=== PATIENT | male | born 1975 | race Caucasian/White ===

== ENCOUNTER 2019-07-25 11:56 | Emergency (ER) | payer OTHER ==
[~2019-07-25] VITALS: Ht 180.3 cm; Wt 93.0 kg
[2019-07-25 11:59] VITALS: BP 140/86
--- NOTE | 2019-07-25 12:02 | NUR ---
PT PLACED IN W/C AND SENT TO ER LOBBY TO WAIT FOR AVAILABLE BED.
--- NOTE | 2019-07-25 16:13 | NUR ---
PATIENT LEFT WITHOUT BEING SEEN BY DR. OLIVO. NO FURTHER CARE PROVIDED FOR PATIENT.
== END 2019-07-25 16:13 | disposition left against medical advice (07) ==
LOC: MED 11:56
DX: F10.10 Alcohol abuse, uncomplicated (principal); Z53.21 Procedure and treatment not carried out due to patient leaving prior to being seen by health care provider

== ENCOUNTER 2019-07-25 19:49 | Emergency (ER) | payer OTHER ==
[~2019-07-25] VITALS: Ht 182.9 cm; Wt 93.0 kg
[2019-07-25 20:15] VITALS: BP 134/90
--- NOTE | 2019-07-25 20:17 | NUR ---
TO LOBBY A/W BED AMBULATORY
--- NOTE | 2019-07-25 22:46 | NUR ---
amb to bed 02 with steady gait
[2019-07-25] MEDS ORDERED: NACL 0.9% 1,000 ML IV ONE (23:15)
--- NOTE | 2019-07-25 23:16 | NUR ---
PT ASSESSMENT COMPLETE. PT LAYING SUPINE IN BED. BEDRAIL X1 UP. WILL CONTINUE TO [facility]TI[facility].
--- NOTE | 2019-07-25 23:25 | NUR ---
LABS DRAWN AND TAKEN TO LAB.
[2019-07-25 23:34] LABS: BASOPHILS % (AUTO) 1.1 % (0.0-2.0); EOSINOPHILS % (AUTO) 1.3 % (0.0-4.0); HEMATOCRIT 43.8 % (36-52); HEMOGLOBIN 14.8 g/dL (12.0-18.0); LYMPHOCYTES # (AUTO) 1.5 K/uL (2.0-11.5); LYMPHOCYTES % (AUTO) 50.8 % (20.5-51.1); MEAN CORPUSCULAR HEMOGLOBIN 33 pg (27-31); MEAN CORPUSCULAR HGB CONC 34 g/dL (33-37); MEAN CORPUSCULAR VOLUME 96.8 fL (80-94); MONOCYTES # (AUTO) 0.2 K/uL (0.8-1.0); MONOCYTES % (AUTO) 7.9 % (1.7-9.3); NEUTROPHILS # (AUTO) 1.1 K/uL (1.8-7.7); NEUTROPHILS % (AUTO) 38.9 % (42.2-75.2); PLATELET COUNT (AUTO) 175 K/uL (140-450); RED BLOOD CELL COUNT(AUTO) 4.52 MIL/uL (4.20-6.10); RED CELL DISTRIBUTION WIDTH 14.2 % (11.6-13.7); WHITE BLOOD COUNT (AUTO) 2.9 K/uL (4.8-10.8)
--- NOTE | 2019-07-25 23:34 | NUR ---
EKG PERFORMED AT BEDSIDE
--- NOTE | 2019-07-25 23:35 | NUR ---
EMT AT BEDSIDE FOR EKG
[2019-07-25 23:39] VITALS: BP 132/89
[2019-07-25 23:49] LABS: ALBUMIN 3.9 g/dL (3.4-5.0); ANION GAP 16.3 (8-16); ASPARTATE AMINOTRANSFERASE 88 U/L (15-37); CARBON DIOXIDE 28.1 mmol/L (21-32); CHLORIDE 105 mmol/L (98-107); CREATININE 0.9 mg/dL (0.7-1.3); GFR ARICAN-AMERICAN 120 mL/min (>90); GLUCOSE 124 mg/dL (74-106); POTASSIUM 3.4 mmol/L (3.5-5.1); SODIUM SERUM 146 mmol/L (136-145); TOTAL BILIRUBIN 0.3 mg/dL (0.0-1.0); UREA NITROGEN, BLOOD 9 mg/dL (7-18)
[2019-07-25 23:52] LABS: SALICYLATE < 2.8 mg/dL (2.8-20.0)
[2019-07-25 23:54] LABS: ACETAMINOPHEN < 0.5 ug/ml (10-30)
[2019-07-25 23:59] LABS: BARBITURATE, URINE NEG. ng/ml (NEG <=200); BENZODIAZEPINE, URINE POS. ng/mL (NEG <=200); CANNABINOID, URINE NEG. ng/mL (NEG <=50); COCAINE, URINE NEG. ng/mL (NEG <=300); OPIATE, URINE NEG. ng/mL (NEG <=2000); PHENCYCLIDINE SCREEN,URINE NEG. ng/mL (NEG <=25)
--- NOTE | 2019-07-26 00:42 | NUR ---
PT ROADTESTED. PT ABLE TO AMBULATE WITH STEADY GAIT AND READY FOR DISCHARGE
== END 2019-07-26 00:48 | disposition home or self-care (01) ==
LOC: MED 19:49
DX: F10.129 Alcohol abuse with intoxication, unspecified (principal)
CPT/HCPCS: 36415; 80053; 80305; 85025; 93005; 99284; G0480; G0482; J7030